=== PATIENT | male | born 2000 | race African-American/Black ===

== ENCOUNTER 2023-07-08 15:32 | Emergency (ER) | payer BC, OTHER ==
[~2023-07-08] VITALS: Ht 182.9 cm; Wt 71.2 kg
[2023-07-08 15:45] VITALS: BP_SYST 126; PULSE 67; RESP 18; TEMP 98; O2SAT 99
[2023-07-08] MEDS ORDERED: IBUP-1971 PO (17:36)
[2023-07-08] MEDS ORDERED: SOM350 PO (17:36)
== END 2023-07-08 17:52 | disposition home or self-care (01) ==
LOC: SED 15:32
DX: S13.4XXA Sprain of ligaments of cervical spine, initial encounter (principal); S33.5XXA Sprain of ligaments of lumbar spine, initial encounter; S53.402A Unspecified sprain of left elbow, initial encounter; Z79.899 Other long term (current) drug therapy; W10.9XXA Fall (on) (from) unspecified stairs and steps, initial encounter; Y93.89 Activity, other specified; Y92.89 Other specified places as the place of occurrence of the external cause; Y99.8 Other external cause status
CPT/HCPCS: 71045; 72040-TC; 72100-TC; 99284